=== PATIENT | female | born 1980 | race Caucasian/White ===

== ENCOUNTER 2018-04-21 00:20 | Inpatient (IN) | payer OTHER ==
[~2018-04-21] VITALS: Ht 152.4 cm; Wt 99.0 kg
[~2018-04-21 00:20] MED LIST: FLAG500T PO; LO LOESTRIN FE
--- NOTE | 2018-04-21 00:58 | HHI.HP ---
History & Physical H&P Patient Name: Nimo Escalera Unit Number: [id number] Date of : 1980 Patient Status: Registered Emergency Room Attending Doctor: Martin Pires MD HPI HPI Chief Complaint My water broke Date Seen: Apr 21, 2018 Time Seen: 00:53 Travel History International Travel<30 Days: No Contact w/Intl Traveler<30Days: No Known Affected Area: No History of Present Illness HPI 37-year-old 3 para 2 at 35+ weeks gestation who reports being awakened by fluid leaking from the vagina. She denies bleeding. She reports mild contraction activity. She has had 2 prior C-sections and is anticipating a repeat and tubal sterilization. History (Limited) History Past Medical History Medical History: Denies Significant Hx Obstetric History Obstetric History 2 prior C-sections This has been uncomplicated Past Surgical History Narrative Surgical ACL, 2 Family History Family History: Negative Social History Alcohol Use: No Tobacco Use: No Substance Abuse: No Allergies-Medications Allergies-Medications (Allergen,Severity, Reaction): Coded Allergies: prochlorperazine (Unverified Allergy, Intermediate, Tachycardia, 07/05/17) Home Meds Active Scripts Metronidazole (Flagyl) 500 Mg Tab, 500 MG PO BID, #14 Prov:DHEERAJ REZA MD 07/10/12 [lo loestrin fe] No Conflict Check, 1, PACK 11 Refills take one tablet by mouth daily Prov:DHEERAJ REZA MD 07/10/12 ROS Review of Systems Except as stated in HPI: all other systems reviewed are Neg Physical Exam Physical Exam Narrative GENERAL: Well-nourished, well-developed patient. SKIN: Warm and dry. HEAD: Normocephalic and atraumatic. EYES: No scleral icterus. No injection or drainage. ENT: No nasal drainage noted. Mucous membranes pink. Airway patent. NECK: Supple, trachea midline. No JVD. CARDIOVASCULAR: Regular rate and rhythm without murmurs, gallops, or rubs. RESPIRATORY: Breath sounds equal bilaterally. No accessory muscle use. ABDOMEN/GI: Abdomen soft, non-tender, bowel sounds present, no rebound, no guarding Gravid to [-] weeks size Fundal Height: [-] GENITOURINARY: External Genitalia: intact and normal in appearance BUS glands: [-Negative] Cervix: [-] Dilatation: [-Closed] Effacement: [-Long] Station: [-] Presentation: [Vertex-] Membranes: [ruptured] Uterine Contractions: [-Irregular] FHT's: Category: [-] Baseline: [-] Reactive: [-y] Variability: [-] Decels: [-] EXTREMITIES: No cyanosis or edema. BACK: Nontender without obvious deformity. No CVA tenderness. NEUROLOGICAL: Awake and alert. Motor and sensory grossly within normal limits. Five out of 5 muscle strength in all muscle groups. Normal speech. Data Data MDM MDM Medical Record Reviewed: Yes Narrative Course / MDM Assessment: 35+ week intrauterine with premature rupture of membranes and prior 2 Plan: Admit for delivery management Diagnosis Diagnosis: Primary Impression: 35 weeks gestation of Additional Impression: premature rupture of membranes Martin Pires MD Apr 21, 2018 00:58
[2018-04-21] MEDS ORDERED: LACTATED RINGER'S 1000 ML INJ 1,000 ML IV ONE ×2 (01:17→12:00)
[2018-04-21] MEDS ORDERED: LACTATED RINGER'S 1000 ML INJ 1,000 ML IV SCH ×2 (01:47→14:16)
[2018-04-21 02:15] LABS: BASOPHIL % 0.3 % (0.0-2.0); EOSINOPHIL # 0.1 TH/MM3 (0-0.4); EOSINOPHIL % 1.1 % (0.0-4.0); HEMATOCRIT 32.9 % (35.0-46.0); HEMOGLOBIN 11.1 GM/DL (11.6-15.3); LYMPH % 14.6 % (9.0-44.0); MEAN CELL VOLUME 80.4 FL (80.0-100.0); MEAN CORPUSCULAR HEMOGLOBIN 27.2 PG (27.0-34.0); MEAN CORPUSCULAR HGB CONC 33.8 % (32.0-36.0); MEAN PLATELET VOLUME 7.2 FL (7.0-11.0); MONO % 8.2 % (0.0-8.0); MONOCYTE # 0.5 TH/MM3 (0-0.9); NEUT % 75.8 % (16.0-70.0); PLATELET COUNT 223 TH/MM3 (150-450); RED CELL DISTRIBUTION WIDTH 14.3 % (11.6-17.2); WHITE BLOOD COUNT 6.6 TH/MM3 (4.0-11.0)
[2018-04-21] MEDS ORDERED: ceFAZolin 2 GM PREMIX 50 ML IV SCH (02:30)
[2018-04-21] MEDS ORDERED: CITRIC ACID-SODIUM CITRATE LIQ 30 ML UDC PO SCH (03:00)
[2018-04-21 04:25] LABS: BILIRUBIN, URINE NEG (NEG); BLOOD, URINE TRACE (NEG); GLUCOSE,URINE NEG (NEG); KETONE, URINE NEG (NEG); MUCUS URINE FEW /lpf (OCC); NITRITE,URINE NEG (NEG); SQUAMOUS EPITHELIAL CELL URINE 1 /hpf (0-5); URINE COLOR YELLOW (YELLW/STRAW); URINE LEUKOCYTE ESTERASE NEG (NEG)
[2018-04-21] MEDS ORDERED: MORPHINE SULFATE PF 5 MG/10 ML VIAL ONE (07:17)
[2018-04-21] MEDS ORDERED: ACETAMINOPHEN 1000 MG/100 ML 100 ML IV SCH ×2 (07:17→15:00)
[2018-04-21] MEDS ORDERED: ACETAMINOPHEN 1000 MG/100 ML 100 ML IV ONE ×2 (07:17)
[2018-04-21] MEDS ORDERED: EPIDURAL-DO NOT ADMINISTER ANTICOAGULANTS PRN (07:35)
[2018-04-21] MEDS ORDERED: EPIDURAL-DIPHENHYDRAMINE HCL 50 MG/ML VIAL IV PUSH PRN (07:35)
[2018-04-21] MEDS ORDERED: EPIDURAL-NO SYSTEMIC NARCOTICS PRN (07:35)
[2018-04-21] MEDS ORDERED: EPIDURAL-DIPHENHYDRAMINE HCL 50 MG CAP PO PRN (07:35)
[2018-04-21] MEDS ORDERED: EPIDURAL-NALOXONE HCL 0.4 MG/ML AMP IV PUSH PRN (07:35)
[2018-04-21] MEDS ORDERED: OXYTOCIN 30 UNITS-500ML PREMIX 500 ML ONE (09:28)
[2018-04-21] MEDS ORDERED: ZOLPIDEM TARTRATE 5 MG TAB PO PRN (09:30)
[2018-04-21] MEDS ORDERED: OXYTOCIN 30 UNITS-500ML PREMIX 500 ML IV ONE (09:30)
[2018-04-21] MEDS ORDERED: DOCUSATE SODIUM 50 MG/SENNA 8.6 MG TAB PO PRN (09:30)
[2018-04-21] MEDS ORDERED: ONDANSETRON ODT 4 MG TAB PO PRN (09:30)
[2018-04-21] MEDS ORDERED: SODIUM CHLORIDE 0.9% FLUSH 10 ML FLUSH IV FLUSH PRN (09:30)
[2018-04-21] MEDS ORDERED: KETOROLAC TROMETHAMINE 60 MG/2 ML (IM) VIAL IM PRN (09:30)
[2018-04-21] MEDS ORDERED: ACETAMINOPHEN 325 MG TAB PO PRN (09:30)
[2018-04-21] MEDS ORDERED: SIMETHICONE 80 MG CHEWABLE TAB PO PRN (09:30)
[2018-04-21] MEDS ORDERED: oxyCODONE/ACETAMINOPHEN 5 MG/325 MG TAB PO PRN ×2 (09:30)
--- NOTE | 2018-04-21 11:03 | MP ---
cc: Fatmata Mcgraw MD DATE OF OPERATION: 04/21/2018 PREOPERATIVE DIAGNOSES: Intrauterine at 35 plus weeks, spontaneous rupture of membranes, previous -section x 2, desires permanent sterilization. POSTOPERATIVE DIAGNOSES: Intrauterine at 35 plus weeks, spontaneous rupture of membranes, previous -section x 2, desires permanent sterilization. PROCEDURE PERFORMED: Repeat lower segment transverse section via Pfannenstiel skin incision, bilateral tubal ligation via modified Chay. SURGEON: Fatmata Mcgraw MD ANESTHESIA: Spinal. IV FLUIDS: 1400 mL. ESTIMATED BLOOD LOSS: 300 mL URINE OUTPUT: 100 mL clear yellow at the end of the procedure. FINDINGS: A live female was delivered. Apgars 9 at 1 minute and 9 at 5 minutes. weight was 5 pounds 13 ounces. DESCRIPTION OF PROCEDURE: The patient was taken to the operating room where spinal anesthesia was found to be adequate. She was then prepped and draped in the normal sterile fashion in the dorsal supine position with a leftward tilt. A Pfannenstiel skin incision was made with a scalpel and carried down to the underlying layer of fascia. The fascia was nicked in the midline. The incision was extended laterally with curved Hernandez scissors. Attention was turned to the inferior aspect of the incision, which was grasped with Abby clamps, elevated, and the rectus muscles dissected off sharply. Attention was turned to the superior aspect of the incision, which was grasped with Abby clamps, elevated, and the rectus muscles dissected off sharply. The rectus muscles were in the midline. The peritoneum was identified, grasped between 2 Christen clamps, elevated, and entered sharply with Metzenbaum scissors. This incision was extended superiorly and inferiorly with good visualization of the bladder. The bladder blade was inserted. The vesicouterine peritoneum was identified, grasped with pickups, entered sharply with Metzenbaum scissors. This incision was extended laterally and the bladder flap created sharply. The lower uterine segment was noted to be attenuated and the incision was made with a scalpel. Clear fluid was noted. The incision was extended laterally with bandage scissors. The vertex was delivered atraumatically. The shoulders were delivered atraumatically. A nuchal cord x 2 was noted. The oropharynx and nasopharynx were bulb suctioned with the syringe. The cord was clamped x 2 and cut after waiting 45 seconds, the infant was handed off to the waiting nurse. The placenta was delivered manually and sent for donation. The uterus was cleared of all clots and debris. The uterine incision was repaired in 2 layers with #1 Vicryl. Hemostasis was assured. The left fallopian tube was identified, grasped with the Jackson, followed out to the fimbriated end. A 2 cm portion was tied x 2 with 0 plain and excised and sent to pathology. The right fallopian tube was identified, grasped with a Jackson, followed out to the fimbriated end and a 2 cm portion was tied x 2 with 0 plain and excised and sent to pathology. Hemostasis was noted. The tubes were returned to the abdomen. The gutters were cleared of all clots and debris. The fascia was reapproximated in a running fashion with 0 Vicryl. The skin was closed with carter. Pressure dressing was applied. The sponge, lap, needle and instrument counts were correct x 3. The patient was transferred to recovery room in stable condition. MD GAIL See/GENARO , 09:52 AM , 11:02 AM
[2018-04-21] MEDS ORDERED: DEXAMETHASONE SOD PHOS 4 MG/ML VIAL IV ONE (12:00)
[2018-04-21] MEDS ORDERED: OXYTOCIN 10 UNIT/ML AMP IV ONE (12:00)
[2018-04-21] MEDS ORDERED: ONDANSETRON HCL 4 MG/2 ML VIAL IV ONE (12:00)
[2018-04-21] MEDS ORDERED: PHENYLEPH/NS 1000 MCG/10 ML SYR IV ONE (12:00)
[2018-04-21] MEDS ORDERED: OXYTOCIN 30 UNITS-500ML PREMIX 500 ML IV PRN (14:30)
--- NOTE | 2018-04-21 19:44 | HHI.DCPOC ---
Discharge Care Plan Your Health Problems Are: Pelvic pain Report Symptoms to Your Doctor -Temperature above 100.5 degrees -Redness, of incision or excessive or foul smelling drainage -Unusual pain or calf pain -Increased vaginal bleeding -Painful or difficulty urinating -Feelings of extreme sadness or anxiety after 2 weeks Goals to Promote Your Health * To prevent worsening of your condition and complications * To maintain your health at the optimal level Directions to Meet Your Goals Take your medications as prescribed Follow your dietary instruction Follow activity as directed Ensure plenty of rest for recovery Drink fluids for hydration Keep your appointments as scheduled Take your immunizations and boosters as scheduled If your symptoms worsen call your PCP, if no PCP go to Urgent Care Center or Emergency Room Smoking is Dangerous to Your Health. Avoid second hand smoke Call the 24-hour crisis hotline for domestic abuse at Fatmata Mcgraw MD Apr 21, 2018 19:44
[2018-04-21] MEDS: SODIUM CHLORIDE 0.9% FLUSH 10 ML FLUSH IV FLUSH SCH (21:00)
[2018-04-22 05:28] LABS: AUTOMATED NEUTROPHIL # 6.1 TH/MM3 (1.8-7.7); BASOPHIL % 0.4 % (0.0-2.0); EOSINOPHIL # 0.1 TH/MM3 (0-0.4); EOSINOPHIL % 1.2 % (0.0-4.0); HEMATOCRIT 27.2 % (35.0-46.0); HEMOGLOBIN 9.2 GM/DL (11.6-15.3); LYMPH % 14.4 % (9.0-44.0); LYMPHOCYTE # 1.2 TH/MM3 (1.0-4.8); MEAN CELL VOLUME 80.2 FL (80.0-100.0); MEAN CORPUSCULAR HEMOGLOBIN 27.2 PG (27.0-34.0); MEAN CORPUSCULAR HGB CONC 33.9 % (32.0-36.0); MEAN PLATELET VOLUME 6.9 FL (7.0-11.0); MONO % 9.1 % (0.0-8.0); MONOCYTE # 0.7 TH/MM3 (0-0.9); NEUT % 74.9 % (16.0-70.0); PLATELET COUNT 182 TH/MM3 (150-450); RED BLOOD COUNT 3.39 MIL/MM3 (4.00-5.30); RED CELL DISTRIBUTION WIDTH 14.5 % (11.6-17.2); WHITE BLOOD COUNT 8.1 TH/MM3 (4.0-11.0)
[2018-04-22 08:00] VITALS: BP 111/72; PULSE 101; RESP 20; TEMP 97.9; O2SAT 100
--- NOTE | 2018-04-22 08:42 | HHI.OB ---
Subjective Post Operative Day: 1 Remarks doing well, voided Objective Vitals/I&O vss afeb Result Diagram: 04/22/18 0511 Objective Remarks GENERAL: Well-nourished, well-developed patient. CARDIOVASCULAR: Regular rate and rhythm without murmurs, gallops, or rubs. RESPIRATORY: Breath sounds equal bilaterally. No accessory muscle use. ABDOMEN/GI: Abdomen soft, non-tender, bowel sounds present. Incision: dressing Clean, dry and intact. Fundus: Firm, non-tender at umbilicus. GENITOURINARY: Light to moderate bleeding. EXTREMITIES: No cyanosis or edema, non-tender, without signs of DVT. Medications and IVs Current Medications Medications (Trade) Dose Ordered Sig/William Route Start Time Stop Time Status Last Admin Lactated Ringer's 1,000 ml @ 100 mls/hr Q10H IV 04/21/18 14:16 04/22/18 10:15 Oxytocin 500 ml @ 100 mls/hr UNSCH X1 PRN IV 04/21/18 14:30 04/22/18 14:29 (NS Flush) 2 ml BID IV FLUSH 04/21/18 21:00 (NS Flush) 2 ml UNSCH PRN IV FLUSH 04/21/18 09:30 (Mylicon Chew) 80 mg QID PRN PO 04/21/18 09:30 (Tylenol) 650 mg Q6H PRN PO 04/21/18 09:30 (Motrin) 600 mg Q6H PRN PO 04/21/18 09:30 (Toradol Inj) 60 mg UNSCH X1 PRN IM 04/21/18 09:30 04/22/18 09:29 (Percocet 5-325 Mg) 1 tab Q4H PRN PO 04/21/18 09:30 (Percocet 5-325 Mg) 2 tab Q4H PRN PO 04/21/18 09:30 (Genia-Colace) 2 tab Q12H PRN PO 04/21/18 09:30 (Ambien) 5 mg HS PRN PO 04/21/18 09:30 (M-M-R Ii Inj) 0.5 ml ONCE ONCE SQ 04/22/18 16:00 04/22/18 16:01 (Boostrix Inj) 0.5 ml ONCE ONCE IM 04/22/18 16:00 04/22/18 16:01 (Zofran Odt) 4 mg Q6H PRN PO 04/21/18 09:30 04/21/18 09:52 Assessment/Plan Assessment and Plan s/p repeat LSTC, BTL POD #1 female advance diet, OOB, remove carter on POD #3 Discharge Planning routine Attending Attestation pt seen by Fatmata Young MD Apr 22, 2018 08:42
[2018-04-22] MEDS ORDERED: AMMONIA AROMATIC INHALANT 0.33 ML ONE (09:17)
[2018-04-22 09:26] VITALS: BP 93/60; PULSE 95; RESP 20; TEMP 98.1; O2SAT 97
[2018-04-22] MEDS: IBUPROFEN 600 MG TAB PO PRN (13:16)
[2018-04-22] MEDS ORDERED: DIPHTH/TETANUS/ACEL PERTUSSIS (BOOSTER) 0.5 ML VIAL/PFS IM ONE (16:00)
[2018-04-22] MEDS ORDERED: MEASLES, MUMPS, RUBELLA VACCINE 0.5 ML VIAL SQ ONE (16:00)
[2018-04-23] MEDS: IBUPROFEN 600 MG TAB PO PRN (01:40)
[2018-04-23] MEDS: SODIUM CHLORIDE 0.9% FLUSH 10 ML FLUSH IV FLUSH SCH (07:49)
--- NOTE | 2018-04-23 08:32 | HHI.OB ---
Subjective Post Operative Day: 2 Remarks s/p repeat LTCd and BTL Objective Vitals/I&O Vital Signs Date Time Temp Pulse Resp B/P (MAP) Pulse Ox O2 Delivery O2 Flow Rate FiO2 04/22/18 09:26 98.1 95 20 93/60 (71) 97 Result Diagram: 04/22/18 0511 Objective Remarks GENERAL: Well-nourished, well-developed patient. CARDIOVASCULAR: Regular rate and rhythm without murmurs, gallops, or rubs. RESPIRATORY: Breath sounds equal bilaterally. No accessory muscle use. ABDOMEN/GI: Abdomen soft, non-tender, bowel sounds present. Incision: Clean, dry and intact. carter in place Fundus: Firm, non-tender at umbilicus. GENITOURINARY: Light bleeding. EXTREMITIES: No cyanosis or edema, non-tender, without signs of DVT. Medications and IVs Current Medications Medications (Trade) Dose Ordered Sig/William Route Start Time Stop Time Status Last Admin (NS Flush) 2 ml BID IV FLUSH 04/21/18 21:00 (NS Flush) 2 ml UNSCH PRN IV FLUSH 04/21/18 09:30 (Mylicon Chew) 80 mg QID PRN PO 04/21/18 09:30 (Tylenol) 650 mg Q6H PRN PO 04/21/18 09:30 (Motrin) 600 mg Q6H PRN PO 04/21/18 09:30 18 01:40 (Percocet 5-325 Mg) 1 tab Q4H PRN PO 04/21/18 09:30 (Percocet 5-325 Mg) 2 tab Q4H PRN PO 04/21/18 09:30 (Genia-Colace) 2 tab Q12H PRN PO 04/21/18 09:30 04/23/18 01:40 (Ambien) 5 mg HS PRN PO 04/21/18 09:30 (Zofran Odt) 4 mg Q6H PRN PO 04/21/18 09:30 04/21/18 09:52 Assessment/Plan Problem List: (1) delivery delivered ICD Codes: O82 - Encounter for delivery without indication Status: Acute Assessment and Plan s/p repeat LSTC, BTL POD #2 female Hgb dropped from 11.1 > 9.2; recheck at noon; if stable will allow d/c to home today w office f/u 1 wk Discharge Planning routine Lelia Johnson MD Apr 23, 2018 08:32
[2018-04-23 12:20] LABS: AUTOMATED NEUTROPHIL # 4.8 TH/MM3 (1.8-7.7); BASOPHIL % 0.7 % (0.0-2.0); EOSINOPHIL # 0.1 TH/MM3 (0-0.4); EOSINOPHIL % 1.8 % (0.0-4.0); HEMATOCRIT 30.4 % (35.0-46.0); LYMPH % 17.9 % (9.0-44.0); LYMPHOCYTE # 1.2 TH/MM3 (1.0-4.8); MEAN CELL VOLUME 81.4 FL (80.0-100.0); MEAN CORPUSCULAR HEMOGLOBIN 26.9 PG (27.0-34.0); MEAN PLATELET VOLUME 6.6 FL (7.0-11.0); MONO % 7.6 % (0.0-8.0); MONOCYTE # 0.5 TH/MM3 (0-0.9); PLATELET COUNT 228 TH/MM3 (150-450); RED BLOOD COUNT 3.74 MIL/MM3 (4.00-5.30); RED CELL DISTRIBUTION WIDTH 14.5 % (11.6-17.2); WHITE BLOOD COUNT 6.6 TH/MM3 (4.0-11.0)
== END 2018-04-23 14:57 | disposition home or self-care (01) | DRG 766 ==
LOC: HOBED 00:20 → H2EB 01:00 → H1EA 10:06
PROVIDERS: ADMIT Obstetrics & Gynecology; ATTEND Obstetrics & Gynecology
PROC: 10D00Z1 Extraction of Products of Conception, Low, Open Approach (ICD-10-PCS; principal; 2018-04-21)
PROC: 0UB70ZZ Excision of Bilateral Fallopian Tubes, Open Approach (ICD-10-PCS; 2018-04-21)
DX: O60.14X0 Preterm labor third trimester with preterm delivery third trimester, not applicable or unspecified (principal); Z23 Encounter for immunization; O34.211 Maternal care for low transverse scar from previous cesarean delivery; Z37.0 Single live birth; Z3A.35 35 weeks gestation of pregnancy; Z30.2 Encounter for sterilization
CPT/HCPCS: 59025; 80307; 81001; 85025; 86850; 86900; 86901; 88302; 90715; G0481; J0131; J0690; J1100; J2274; J2370; J2405; J2590; J3010; J7120